=== PATIENT | male | born 1980 | race Caucasian/White ===

== ENCOUNTER 2024-01-03 05:13 | Emergency (ER) | payer SELFPAY ==
[2024-01-03 05:13] VITALS: BP 117/69; PULSE 68; RESP 18; TEMP 36.5; O2SAT 97; BMI 27.3
--- NOTE | 2024-01-03 05:15 | XRR_ITS ---
PROCEDURE INFORMATION: Exam: XR Lumbosacral Spine Exam date and time: 01/03/2024 5:16 AM Age: 43 years old Clinical indication: Patient HX: PT awakened from sleep with severe low back pain. No injury. TECHNIQUE: Imaging protocol: Radiologic exam of the lumbosacral spine. Views: 2 or 3 views. COMPARISON: No relevant prior studies available. FINDINGS: Bones/joints: There are 5 [id number] lumbar vertebral bodies. There is a scoliotic curvature convex left. There is grade 1 anterolisthesis of L4 in relation to L5. No compression fractures are noted. Disc spaces are relatively well preserved. There are degenerative changes involving the lower lumbar facets. Soft tissues: Unremarkable. Gastrointestinal tract: No dilated loops of large or small bowel is appreciated. There is a moderate amount of stool within the colon. XR/XR lumbar spine 2-3V* [id number] IMPRESSION: 1. Scoliotic curvature convex left. 2. Grade 1 anterolisthesis of L4 in relation to L5. 3. Fecal stasis.
--- NOTE | 2024-01-03 05:16 | W.ED.BACK ---
HPI - Back Pain/Injury General: Chief Complaint: Back Pain/Injury Stated Complaint: Back Pain Time Seen by Provider: 01/03/24 05:13 Source: patient Mode of arrival: ambulatory Limitations: no limitations History of Present Illness: 43-year-old male states that he had woke up in the melanite and gel with back pain he states he has a history of back pain in the past states it is in his lower back is much worse with movement and palpation he denies any bowel or bladder incontinence denies any abdominal pain denies any vomiting or diarrhea Associated symptoms: Deny abdominal pain, chills, fever(s), nausea or vomiting Related Data Previous Rx's Medication Instructions Recorded methocarbamol 750 mg tablet 750 mg PO Q6H PRN spasms #20 tabs 01/03/24 naproxen 500 mg tablet (Naprosyn) 500 mg PO BID PRN pain #20 tabs 01/03/24 Review of Systems Const: Denies: fever(s), chills, body aches or change in appetite ENMT: Denies: throat pain or dental pain Card: Denies: chest pain Resp: Denies: dyspnea GI: Denies: abdominal pain, nausea, vomiting or diarrhea Musc: Reports: back pain; Denies: neck pain Skin/Breast: Denies: rash Neuro: Denies: headache(s) Physical Exam Const: COMMON NORMALS: no acute distress, patient oriented x3 and healthy appearing Eye: COMMON NORMALS: conjunctivae normal CONJUNCTIVA: Yes conjunctivae normal Neck/C-Spine: COMMON NORMALS: full ROM and supple Chest: COMMONS NORMALS: normal inspection of the chest Resp: COMMON NORMALS: normal respiratory effort Back/Pelvis: OTHER: Paraspinal tenderness to lumbar spine no midline tenderness no saddle anesthesia Extremity: COMMON NORMALS: normal to inspection and full ROM Neuro: COMMON NORMALS: patient oriented x3, moves all extremities and no focal motor deficits Psych: COMMON NORMALS: mental status grossly normal, Normal thought process present and cooperative THOUGHT PROCESS: Normal thought process present Skin: COMMON NORMALS: no rashes or lesions noted and no wounds GENERAL SKIN EXAM: no rashes or lesions noted Course Vital Signs: Vital signs: Vital Signs Temperature 97.7 F 01/03/24 05:13 Pulse Rate 68 01/03/24 05:13 Respiratory Rate 18 01/03/24 05:24 Blood Pressure 117/69 01/03/24 05:13 Pulse Oximetry 97 01/03/24 05:13 Oxygen Delivery Me thod Room Air 01/03/24 05:24 MDM - Back Pain/Injury Medical Decision Making Patient presents for low back pain is likely muscle pain he has no signs of kidney stone he has no signs of cord compression or epidural abscess he is stable for discharge we will place him on Naprosyn Robaxin follow-up with PCP return if worsening XR interpretation done by ED provider, pending radiology final review ED provider radiology interpretation(s): X-ray lumbar spine no acute abnormality Discharge Plan Discharge Patient Disposition: Home Clinical Impression: Low back pain Condition: Stable Prescriptions: New methocarbamol 750 mg tablet 750 mg PO Q6H PRN (Reason: spasms) Qty: 20 0RF Naprosyn 500 mg tablet 500 mg PO BID PRN (Reason: pain) Qty: 20 0RF Discharge Orders: Discharge ED (Routine); Ordered 01/03/24 Ordered By: Brissa Encarnacion Discharge Diet: Advance as tolerated Discharge Activity: Resume usual activity Patient Instructions: Back Pain (ED) Coding Level of Care Code ED Maintenance Mechanic for Kathleen Pelayo
[2024-01-03 05:24] VITALS: RESP 18
[2024-01-03] MEDS: ketorolac 60 mg/2 mL INJ IM (05:34)
[2024-01-03] MEDS: methocarbamol 750 mg Tablet 1500 MG PO (05:34)
[2024-01-03] MEDS: dexamethasone 10 mg/mL INJ IM (05:34)
[2024-01-03 06:02] VITALS: BP 125/79; PULSE 60; RESP 18; O2SAT 96
== END 2024-01-03 06:04 | disposition home or self-care (01) ==
LOC: ER 05:30
PROVIDERS: Emergency Provider Emergency Medicine
DX: M54.50 Low back pain, unspecified (principal)
CPT/HCPCS: 72100; 96372; 99284; J1100; J1885